=== PATIENT | male | born 1980 | race Two or more races ===

== ENCOUNTER 2024-09-14 11:56 | Inpatient (IN) | payer BC, OTHER ==
[~2024-09-14] VITALS: Ht 172.7 cm; Wt 91.0 kg
--- NOTE | 2024-09-14 12:22 | ED.PDOC ---
HPI Comments 44y M who presents to the ED for chief complaint of chest pain. Pt states he was at work today and states he felt short of breath. Pt states he had EKG done at work and states it showed Left bundle branch block. 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 Pt states in the ED, chest pain is center of his chest, constant, radiating to the L side of neck, rating the pain 2/10, pressure like in nature, with associa isabella exacerbation of pain while ambulating and no relieving factors. Pt has associated shortness of breath, and migraines but denies calf pain, diaphoresis, palpitations, and any other symptoms. Pt states he has seen PCP for similar symptoms a few months prior and was given cardiology referral but states appt is in a few weeks. Pt otherwise states he also had chest CT done 1 week prior and states he was told he has cadiomegaly. Pt in the ED, has noted BP of 161/79 with all other vitals in normal range. Pt otherwise denies any other symptoms at this time. Chief Complaint: Chest Pain Time Seen by MD: 12:19 Reviewed Notes: Nurses Notes, Medications, Allergies (Allergies to penicillin) Allergies: Coded Allergies: Penicillins (Verified Allergy, Unknown, 09/14/24) Information Source: Patient Mode of Arrival: Ambulatory Past Medical History PAST MEDICAL HISTORY: GERD, High Lipids, HTN Surgical History: Denies all surgeries Family History Family History: Family hx of heart dimitri Social History Smoker: Non-Smoker Alcohol: Occasionally Drugs: Denies Drug Use Lives In: Home Constitutional: denies: chills, diaphoresis, fatigue, fever, malaise, sweats, weakness, others EENTM: denies: blurred vision, double vision, ear bleeding, ear discharge, ear drainage, ear pain, ear ringing, eye pain, eye redness, hearing loss, mouth pain, mouth swelling, nasal discharge, nose bleeding, nose congestion, nose pain, photophobia, tearing, throat pain, throat swelling, voice changes, others Respiratory: reports: shortness of breath; denies: cough, hemoptysis, orthopnea, SOB at rest, SOB with excertion, stridor, wheezing, others Cardiovascular: reports: chest pain; denies: dizzy spells, diaphoresis, Dyspnea on exertion, edema, irregular heart beat, left arm pain, lightheadedness, palpitations, PND, syncope, others Gastrointestinal: denies: abdomen distended, abdominal pain, blood streaked bowels, constipated, diarrhea, dysphagia, difficulty swallowing, hematemesis, melena, nausea, poor appetite, poor fluid intake, rectal bleeding, rectal pain, vomiting, others Genitourinary: denies: burning, dysuria, flank pain, frequency, hematuria, incontinence, penile discharge, penile sore, pain, testicle pain, testicle swelling, urgency, others Neurological: reports: others (migraine); denies: dizziness, fainting, headache, left sided numbness, left sided weakness, numbness, paresthesia, pre-existing deficit, right sided numbness, right sided weakness, seizure, speech problems, tingling, tremors, weakness Musculoskeletal: denies: back pain, gout, joint pain, joint swelling, muscle pain, muscle stiffness, neck pain, others Integumetry: denies: bruises, change in color, change in hair/nails, dryness, laceration, lesions, lumps, rash, wounds, others Allergic/Immunocompromised: denies: Difficulty Healing, Frequent Infections, Hives, Itching, others Hematologic/Lymphatic: denies: anemia, blood clots, easy bleeding, easy bruising, swollen glands, others Endocrine: denies: excessive hunger, excessive sweating, excessive thirst, excessive urination, flushing, intolerance to cold, intolerance to heat, unexplained weight gain, unexplained weight loss, others Psychiatric: denies: anxiety, bipolar disorder, depression, hopeless, panic disorder, schizophrenia, sleepless, suicidal, others All Other Systems: Reviewed and Negative Physical Exam General Appearance: Moderate Distress HEENT: Normal ENT Inspection, Pharynx Normal, TMs Normal Neck: Full Range of Motion, Non-Tender, Normal, Normal Inspection Respiratory: Chest Non-Tender, Lungs Clear, No Accessory Muscle Use, No Respiratory Distress, Normal Breath Sounds Cardiovascular: No Edema, No JVD, No Murmur, No Gallop, Normal Peripheral Pulses, Regular Rate/Rhythm Breast Exam: Deferred Gastrointestinal: No Organomegaly, Non Tender, No Pulsatile Mass, Normal Bowel Sounds, Soft Genitalia: Deferred Pelvic: Deferred Rectal: Deferred Extremities: No calf tenderness, Normal capillary refill, Normal inspection, Normal range of motion, Non-tender, No pedal edema Musculoskeletal : Apperance: Normal Neurologic: Alert, supervisor steffen house II-XII nml as Tested, Motor Weakness, Normal Affect, Normal Mood, No Sensory Deficits Cerebellar Function: Normal Reflexes: Normal Skin: Dry, Normal Color, Warm Lymphatic: No Adenopathy EKG EKG : Pulse Rate (adult): 84 [place]: Normal Cardiac Rhythm: NSR Block: LBBB Hypertrophy: None ST: Normal Was a procedure done? Was a procedure done?: No CP Differential Dx Differential Diagnosis: A-fib, A-Flutter, Angina, Anxiety / Panic Attack, Electrolyte Disorder, Heart Failure, PVC's Differential Diagnosis: Chest Wall Pain, Costochondritis, Gastritis X-Ray, Labs, Meds, VS Vital Signs Date Time Temp Pulse Resp B/P (MAP) Pulse Ox O2 Delivery O2 Flow Rate FiO2 09/14/24 13:32 98.6 66 16 135/65 (88) 95 98.6 09/14/24 13:32 66 16 95 Room Air 09/14/24 12:58 77 09/14/24 12:22 84 09/14/24 12:01 84 09/14/24 11:57 99.1 96 20 161/79 (106) 100 Lab Test 09/14/24 14:21 09/14/24 13:52 09/14/24 12:07 Range/Units Troponin I High Sensitivity < 3 L < 3 L </=54 ng/L Urine Color Light-yellow Yellow Urine Clarity Clear Clear Urine pH 7.0 5.0-9.0 Urine Specific [place] 1.012 1.001-1.035 Urine Protein Negative Negative Urine Ketones Negative Negative Urine Blood Negative Negative /uL Urine Nitrite Negative Negative Urine Bilirubin Negative Negative Urine Urobilinogen Normal Negative mg/dL Urine Leukocyte Esterase Negative Negative /uL Urine RBC <1 0 - 3 /hpf Urine Microscopic WBC < 1 0-3 /HPF Urine Squamous Epithelial Cells None seen <5 /hpf Urine Bacteria None seen None Seen /hpf Urine Glucose Normal Normal mg/dL White Blood Count 6.4 4.4-10.8 10^3/uL Red Blood Count 5.87 4.5-5.90 10^6/uL Hemoglobin 17.2 13.5-17.5 g/dL Hematocrit 50.9 41.0-53.0 % Mean Corpuscular Volume 86.8 80.0-100.0 fL Mean Corpuscular Hemoglobin 29.3 28.0-32.0 pg Mean Corpuscular Hemoglobin Concent 33.8 32.0-36.0 g/dL Red Cell Distribution Width 12.6 11.8-14.3 % Platelet Count 264 140-450 10^3/uL Mean Platelet Volume 7.8 6.9-10.8 fL Neutrophils (%) (Auto) 66.0 37.0-80.0 % Lymphocytes (%) (Auto) 26.2 10.0-50.0 % Monocytes (%) (Auto) 6.2 0.0-12.0 % Eosinophils (%) (Auto) 1.0 0.0-7.0 % Basophils (%) (Auto) 0.6 0.0-2.0 % Neutrophils # (Auto) 4.2 1.6-8.6 10 ^3/uL Lymphocytes # (Auto) 1.7 0.4-5.4 10 ^3/uL Monocytes # (Auto) 0.4 0-1.3 10 ^3/uL Eosinophils # (Auto) 0.1 0-0.8 10 ^3/uL Basophils # (Auto) 0 0-0.2 10 ^3/uL Nucleated Red Blood Cells 0.2 % D-Dimer, Quantitative < 0.19 0.0-0.49 mg/L FEU Sodium Level 140 136-145 mmol/L Potassium Level 3.9 3.5-5.1 mmol/L Chloride Level 102 98-107 mmol/L Carbon Dioxide Level 28 20-31 mmol/L Anion Gap 10 5-15 Blood Urea Nitrogen 16 9-23 mg/dL Creatinine 0.93 0.700-1.30 mg/dL Glomerular Filtration Rate Calc 103 >90 mL/min BUN/Creatinine Ratio 17.2 10.0-20.0 Serum Glucose 110 H 74-106 mg/dL Calcium Level 10.5 H 8.7-10.4 mg/dL Magnesium Level 2.2 1.6-2.6 mg/dL Current Medications Medications (Trade) Dose Ordered Sig/Yany Route Start Time Stop Time Status Last Admin Aspirin 162 mg ONCE ONCE PO 09/14/24 12:15 09/14/24 12:16 DC 09/14/24 13:38 EXAM: XY CHEST TWO VIEWS ROUTINE IMPRESSION: No acute cardiopulmonary disease. TECHNIQUE: Multiple real-time sonographic images were obtained of the right upper quadrant. IMPRESSION: No sonographic evidence of gallstones or acute cholecystitis. Hepatic steatosis and hepatomegaly. At this time, the patient was being admitted to the hospitalist There is a concern of the ongoing chest pain so the patient was given aspirin 162 mg by mouth The patient's CBC is within normal limits The chemistry panel is within normal limits The D-dimer is negative The urine test is negative for infection The troponin x2 is negative At this time we are going to admit the patient to the hospitalist and we did contact the polytechnic registrar The patient understands and agrees with the management. Images Reviewed?: Images reviewed and evaluated by me Time of 1ST Reevaluation: 12:50 Reevaluation 1ST: Unchanged Patient Education/Counseling: Diagnosis, Treatment, Prognosis Family Education/Counseling: No Family Present Additional Information - I reviewed the following notes from patient's past medical encounters: - The following tests were ordered, and results were reviewed by me: (Labs, X- Ray, EKG): cbc, cmp,ekg x3, troponin x3, d dimer, chest x-ray, magnesium, ua - Additional information was gathered from interviewing the following independent Historian: (Family, Other Providers, EMT): none - I reviewed and agreed with the following test results read by other provider: (X-ray, CT, US): radiologist - I discussed treatments and results with medical personnel and: (consultants, family): none Departure 1 Departure Time of Disposition: 15:32 Impression: Primary Impression: Acute chest pain Additional Impression: Acute electrocardiogram changes Disposition: ADMITTED INPATIENT Admit to: Tele Condition: Fair Critical Care Note Critical Care Time?: No Stability Stability form required: Yes Unstable for transfer: Telemetry monitoring (Telemetry monitoring required), ED Physician Assesment (Clinical assesment) Heart Score Heart Score: Heart Score Response (Comments) Value History Slightly Suspicious 0 EKG Repolarization Disturb 1 Age 45-64 1 Risk Factors 1 or 2 risk factors 1 Troponin Normal limit 0 Total 3 I personally scribed for MARKY GUERRERO MD ([email or web address]) on 09/14/24 at 12:22. Electronically submitted by Fabrice Luther ([email or web address]). I personally scribed for MARKY GUERRERO MD ([email or web address]) on 09/14/24 at 13:29. Electronically submitted by Fabrice Luther ([email or web address]). MARKY GUERRERO MD Sep 14, 2024 12:22
[2024-09-14 12:25] LABS: Basophils # (auto) 0 10 ^3/uL (0-0.2); Basophils % (auto) 0.6 % (0.0-2.0); Eosinophils # (auto) 0.1 10 ^3/uL (0-0.8); Hematocrit 50.9 % (41.0-53.0); Hemoglobin 17.2 g/dL (13.5-17.5); Lymphocytes # (auto) 1.7 10 ^3/uL (0.4-5.4); Lymphocytes % (auto) 26.2 % (10.0-50.0); Mean Corpuscular Hemoglobin 29.3 pg (28.0-32.0); Mean Corpuscular Hgb Conc. 33.8 g/dL (32.0-36.0); Mean Corpuscular Volume 86.8 fL (80.0-100.0); Monocytes # (auto) 0.4 10 ^3/uL (0-1.3); Monocytes % (auto) 6.2 % (0.0-12.0); Neutrophils # (auto) 4.2 10 ^3/uL (1.6-8.6); Nucleated Red Blood Cells % 0.2 %; Platelet Count (auto) 264 10^3/uL (140-450); Red Blood Cells 5.87 10^6/uL (4.5-5.90); Red Cell Distribution Width 12.6 % (11.8-14.3); White Blood Cell 6.4 10^3/uL (4.4-10.8)
--- NOTE | 2024-09-14 12:31 | DVH ---
EXAM: XY CHEST TWO VIEWS ROUTINE CLINICAL HISTORY: CP COMPARISON: None TECHNIQUE: Frontal and lateral view of the chest was obtained FINDINGS: Lines and Tubes: None Lungs: No focal consolidation. Pleura: No effusion. No pneumothorax. Cardiomediastinal contours: Unremarkable Bones: No acute osseous abnormality. IMPRESSION: No acute cardiopulmonary disease.
[2024-09-14 12:35] LABS: Anion Gap 10 (5-15); Carbon Dioxide 28 mmol/L (20-31); Chloride 102 mmol/L (98-107); Potassium 3.9 mmol/L (3.5-5.1); Sodium 140 mmol/L (136-145)
[2024-09-14 12:41] LABS: BUN/Creatinine Ratio 17.2 (10.0-20.0); Blood Urea Nitrogen 16 mg/dL (9-23); Magnesium 2.2 mg/dL (1.6-2.6)
[2024-09-14 12:42] LABS: Calcium 10.5 mg/dL (8.7-10.4); Glucose 110 mg/dL (74-106)
--- NOTE | 2024-09-14 13:11 | DVH ---
INDICATION: pain TECHNIQUE: Multiple real-time sonographic images were obtained of the right upper quadrant. COMPARISON: None FINDINGS: The liver demonstrates increased echotexture without focal mass lesions. The liver measures 19 cm. There is no intrahepatic or extrahepatic ductal dilatation. The common duct measures 5 mm. The gallbladder is without evidence of stone or sludge. The gallbladder wall measures 1 mm and is w ithin normal limits. The right kidney measures 9.1 cm. The right kidney is normal in contour, size, and shape. The echo genicity is normal. There is no hydronephrosis. The pancreas is not well visualized due to overlying bowel gas. IMPRESSION: No sonographic evidence of gallstones or acute cholecystitis. Hepatic steatosis and hepatomegaly.
[2024-09-14] MEDS: ASPirin 81 mg TAB PO ONE (13:38)
[2024-09-14 13:53] LABS: Urine Bacteria None Seen /hpf (None Seen)
[2024-09-14 14:05] LABS: Urine Blood Negative /uL (Negative); Urine Clarity Clear (Clear); Urine Color Light-Yellow (Yellow); Urine Protein, UAD Negative (Negative); Urine Specific Gravity 1.012 (1.001-1.035); Urine Squamous Epithelial Cell None Seen /hpf (<5); Urine Urobilinogen Normal (Negative)
[2024-09-14 14:07] LABS: Urine WBC < 1 /HPF (0-3)
--- NOTE | 2024-09-14 19:07 | ECG ---
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
[2024-09-14] MEDS ORDERED: ONDANSETRON HCL 4 MG/2 ML VIAL IV PRN (20:30)
[2024-09-14] MEDS ORDERED: MELATONIN 5 MG TAB PO PRN (20:30)
[2024-09-14] MEDS ORDERED: HYDROcodone-ACET 5/325MG TAB PO PRN (20:30)
[2024-09-14] MEDS ORDERED: NITROGLYCERIN 0.4 MG SL TAB SL PRN (20:30)
[2024-09-14] MEDS ORDERED: MORPHINE SULFATE INJ 2 MG/ml SYRG IV PRN (20:30)
[2024-09-14] MEDS ORDERED: ACETAMINOPHEN 325 MG TAB PO PRN (20:30)
[2024-09-14] MEDS: FAMOTIDINE 20 MG TAB PO SCH (23:31)
[2024-09-15] VITALS (7 sets, daily range): BP systolic 111–134; BP diastolic 71–84; PULSE 67–90; RESP 16–18; TEMP 97.8–98.3; O2SAT 94–98
--- NOTE | 2024-09-15 01:14 | DVHHP2 ---
Admitting Diagnosis: CP rule out ACS, SOB History of Present Illness History Source: Patient Exam Limitations: No limitations HPI Mr. Naif Shen is a 44 yo male who presents with a chief complaint of chest pain. Patient reports he was at work today and states he felt short of breath while standing up. Patient states he had EKG done at work and states it showed Left bundle branch block. 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 Patient states his chest pain is midsternal constant, radiating to the L side of neck, rating the pain 2/10, pressure like in nature, with associated exacerbation of pain while ambulating and no relieving factors. Pt has associated shortness of breath at rest and with exertion. Patient admitted for further evaluation. Home Meds Reported Medications Erenumab-Aooe (Aimovig) 140 Mg/Ml Inj, 140 MG SC MONTHLY, INJ 25 Ubrogepant (Ubrelvy) 100 Mg Tab, 100 MG PO PRN for MIGRAINES, TAB 25 Acetaminophen (Tylenol Extra Strength) 500 Mg Tab, 500 MG PO, TAB 2/25 Atorvastatin Calcium (Lipitor) 40 Mg Tab, 1 TAB PO QPM, #90 TAB 1 Refill 25 Losartan Potassium (Losartan Potassium) 25 Mg Tab, 1 TAB PO BID, #90 TAB 1 Refill 25 Past Medical History Cardiac: HTN, Hyperlipidemia Pulmonary: No pertinent Hx Central Nervous System: No pertinent Hx GI: GERD Hemotology/Oncology: No pertinent Hx Hepatobiliary: No pertinent Hx Psychiatric: No pertinent Hx Musculoskeletal: No pertinent Hx Rheumotologic: No pertinent Hx Infectious Disease: No peritnent Hx ENT: No pertinent Hx Renal/: No pertinent Hx Endocrine: No pertinent Hx Dermatology: No pertinent Hx Smoker: No Hx (Negative) Alocohol: None Drugs: None Lives with: With family Domestic Violence: Neg Review of Systems Constitutional: No symptom reported Ears, Nose, & Throat: No symptom reported Eyes: No symptom reported Pulmonary/Respiratory: Dyspnea Cardiovascular: Chest Pain Gastrointestinal: No symptom reported Genitourinary: No symptom reported Musculoskeletal: No symptom reported Skin: No symptom reported Psychiatric: No symptom reported Endocrine: No symptom reported Hemotologic/Lymphatic: No symptom reported H&P Exam Vital Signs Vital Signs Date Time Temp Pulse Resp B/P (MAP) Pulse Ox O2 Delivery O2 Flow Rate FiO2 09/14/24 23:31 89 20 13/90 (65) 97 09/14/24 19:21 98.4 98.4 09/14/24 13:32 Room Air General Appeara: Well developed, Well nourished, Normal Appearance Head Exam: Normal inspection Neck Exam: Normal inspection, Non-tender, Normal alignment Eye Exam: bilateral eye Normal inspection, bilateral eye PERRL, bilateral eye EOMI Ear Exam: bilateral ear Auricle normal Nasal Exam: Normal inspection Mouth: Normal Inspection Pulmonary/Respiratory: Normal inspection, Normal breath sounds, Chest non- tender, Lungs clear Cardiovascular/Chest: Normal inspection, Regular rate, Normal Rhythm Peripheral Pulses: 2+ dorsalis pedis (R), 2+ dorsalis pedis (L), 2+ Radial (R), 2+ Radial (L) Abdominal Exam: Normal bowel sounds, Soft Rectal Exam: Deferred Tendon/ Neuro: Normal sensation, Normal motor function 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 Exam: Normal hearing, Normal speech Neuro/Mental St: Alert, Oriented Appearance: Appropriate appearance, Appropriate insight Eye contact/ Speech: Cooperative, Good eye contact, Normal speech Thoughts/Psych: Normal thought pattern Skin Exam: Normal inspection, Normal color, Warm/dry Labs/Xrays Labs Test 09/14/24 14:21 09/14/24 13:52 09/14/24 12:07 Range/Units Troponin I High Sensitivity < 3 L </=54 ng/L Urine Color Light-yellow Yellow Urine Clarity Clear Clear Urine pH 7.0 5.0-9.0 Urine Specific [place] 1.012 1.001-1.035 Urine Protein Negative Negative Urine Ketones Negative Negative Urine Blood Negative Negative /uL Urine Nitrite Negative Negative Urine Bilirubin Negative Negative Urine Urobilinogen Normal Negative mg/dL Urine Leukocyte Esterase Negative Negative /uL Urine RBC <1 0 - 3 /hpf Urine Microscopic WBC < 1 0-3 /HPF Urine Squamous Epithelial Cells None seen <5 /hpf Urine Bacteria None seen None Seen /hpf Urine Glucose Normal Normal mg/dL White Blood Count 6.4 4.4-10.8 10^3/uL Red Blood Count 5.87 4.5-5.90 10^6/uL Hemoglobin 17.2 13.5-17.5 g/dL Hematocrit 50.9 41.0-53.0 % Mean Corpuscular Volume 86.8 80.0-100.0 fL Mean Corpuscular Hemoglobin 29.3 28.0-32.0 pg Mean Corpuscular Hemoglobin Concent 33.8 32.0-36.0 g/dL Red Cell Distribution Width 12.6 11.8-14.3 % Platelet Count 264 140-450 10^3/uL Mean Platelet Volume 7.8 6.9-10.8 fL Neutrophils (%) (Auto) 66.0 37.0-80.0 % Lymphocytes (%) (Auto) 26.2 10.0-50.0 % Monocytes (%) (Auto) 6.2 0.0-12.0 % Eosinophils (%) (Auto) 1.0 0.0-7.0 % Basophils (%) (Auto) 0.6 0.0-2.0 % Neutrophils # (Auto) 4.2 1.6-8.6 10 ^3/uL Lymphocytes # (Auto) 1.7 0.4-5.4 10 ^3/uL Monocytes # (Auto) 0.4 0-1.3 10 ^3/uL Eosinophils # (Auto) 0.1 0-0.8 10 ^3/uL Basophils # (Auto) 0 0-0.2 10 ^3/uL Nucleated Red Blood Cells 0.2 % D-Dimer, Quantitative < 0.19 0.0-0.49 mg/L FEU Sodium Level 140 136-145 mmol/L Potassium Level 3.9 3.5-5.1 mmol/L Chloride Level 102 98-107 mmol/L Carbon Dioxide Level 28 20-31 mmol/L Anion Gap 10 5-15 Blood Urea Nitrogen 16 9-23 mg/dL Creatinine 0.93 0.700-1.30 mg/dL Glomerular Filtration Rate Calc 103 >90 mL/min BUN/Creatinine Ratio 17.2 10.0-20.0 Serum Glucose 110 H 74-106 mg/dL Calcium Level 10.5 H 8.7-10.4 mg/dL Magnesium Level 2.2 1.6-2.6 mg/dL Assessment/Plan Problem List: (1) Acute chest pain (2) Acute electrocardiogram changes Plan This is a 44 yo male with a known history of hypertension, GERD, hyperlipidemia who presents to the hospital with chest pain and shortness of breath. 1. Chest pain rule out ACS 2. Shortness of breath Plan Admit telemetry Cardiology consultation , 2D echocardiogram, serial troponin levels, ASA , Statin Lipid panel Analgesics as needed Supplemental oxygen as needed to keep 02 saturation above 92% Discussed all above with patient who verbalized agreement and understanding of care plan. Discussed assessment and care plan with supervising MD Plan discussed with: Patient, Other Code Visit Code Visit Total Time (mins): 45 Additional Comments Additional Comments Additional Comments 4-year-old male with a no significant past medical history presented to the hospital with chest pain shortness breath found to have 1. Chest pain rule out IA 2. Dyspnea on exertion -2D echo cardiology consultation SPENCER LAKHANI Sep 15, 2024 01:14 VIDHYA WALKER MD Sep 15, 2024 17:02
[2024-09-15] MEDS ORDERED: LOSA-533 PO (05:17)
[2024-09-15] MEDS ORDERED: ATOR-507 PO (05:18)
[2024-09-15] MEDS ORDERED: ACET-1304 PO (05:18)
[2024-09-15] MEDS ORDERED: UBRO100T2 PO (05:20)
[2024-09-15] MEDS ORDERED: EREN140I SC (05:21)
--- NOTE | 2024-09-15 10:07 | ECG ---
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
[2024-09-15 11:18] LABS: Triglycerides 73 mg/dL (< 150)
[2024-09-15 11:19] LABS: LDL Cholesterol 97 mg/dL (< 100)
[2024-09-15 11:20] LABS: Cholesterol 161 mg/dL (< 200); HDL Cholesterol 55 mg/dL (40-59)
[2024-09-15] MEDS: ASPirin 81 mg TAB PO SCH (11:27)
--- NOTE | 2024-09-15 17:30 | DVHSR ---
APPROVED REPORT EXAM: Two-dimensional and M-mode echocardiogram with Doppler and color Doppler. Blood Pressure: 124/77 mmHg INDICATION Chest Pain RISK FACTORS Height: 5'8, Weight: 200 DIMENSIONS LVDd4.5 (3.8-5.7cm)LA (2D)2.5 (1.9-4.0cm)Aortic Root3.3 (2.0-3.7cm) LVDs3.2 (2.5-4.0cm)LA (MM) (1.9-4.0cm)Aortic Cusp Exc1.7 (1.5-2.0cm) EF (%) 55.0 (55-70%)Rt. Atrium4.3 (1.9-4.0cm)Asc. Aorta cm IVSd1.1 (0.7-1.1cm)RV (D)4.3 (1.8-2.4cm) PWd1.0 (0.7-1.1cm) Mitral Valve MitralMitral Stenosis E wave0.63m/sMV Mean GR.mmHg A wave0.96m/sMV Peak GR.mmHg E/A ratio0.72D MVAcm2 DECEL [id number] 1/2 Timems Aortic Valve Aortic ValveAortic Stenosis V11.29m/Lisa Mean GR.4mmHg V21.31m/Lisa Peak GR.7mmHg LVOT Diameter2.0 (1.8-2.4cm)Doppler AVA3.09cm2 Pulmonic Valve V21.50m/s Tricuspid Valve TR Velocity2.73m/s [id number] Conclusion Sinus rhythm Right atrial and RV enlargement of mild degree. Normal Valves EF normal at 55% with normal RV function. Abnormal septal motion due to bundle branch block. Mild TR No masses or vegetations noted. No pericardial effusion.
--- NOTE | 2024-09-15 18:33 | DVHINCON2 ---
Date Seen: Sep 15, [address] Silva Reason for Consultation Chest Pain History of Present Illness Pt with history of SOB and BONNER while at work. Noted history of progressive SOB on exertion. . He has been feeling progressive symptoms over the last several months. He has been concerned given his history of heart disease in his family. Past Medical History Patient has a past medical history of migraines and hyperlipidemia as well as hypertension. Past Surgical History No past surgical history of significance. Family History: Arthritis G8 FATHER, Cardiovascular disease G8 MOTHER (STROKE) G8 FATHER, (HEART VALVE ISSUES STROKE ) Hypertension G8 MOTHER Allergies: Coded Allergies: Penicillins (Verified Allergy, Unknown, 09/14/24) Home Meds Reported Medications Erenumab-Aooe (Aimovig) 140 Mg/Ml Inj, 140 MG SC MONTHLY, INJ 09/15/24 Ubrogepant (Ubrelvy) 100 Mg Tab, 100 MG PO PRN for MIGRAINES, TAB 09/15/24 Acetaminophen (Tylenol Extra Strength) 500 Mg Tab, 500 MG PO, TAB 09/15/24 Atorvastatin Calcium (Lipitor) 40 Mg Tab, 1 TAB PO QPM, #90 TAB 1 Refill 09/15/24 Losartan Potassium (Losartan Potassium) 25 Mg Tab, 1 TAB PO BID, #90 TAB 1 Refill 09/15/24 Current Medications Current Medications Medications (Trade) Dose Ordered Sig/Yany Route PRN Reason Start Time Stop Time Status Last Admin Ondansetron HCl (Zofran) 4 mg Q6HPRN PRN IV NAUSEA / VOMITING 09/14/24 20:30 Famotidine (Pepcid Tablet) 20 mg BID PO 09/14/24 22:00 09/15/24 11:26 Acetaminophen/ Hydrocodone Bitart ([place] 5/325MG Tab) 1 tab Q6HPRN PRN PO MODERATE PAIN (4-6 PAIN SCALE) 09/14/24 20:30 Acetaminophen (Tylenol Tablet) 650 mg Q6HPRN PRN PO PAIN SCALE 1-3 OR TEMP>100.4 09/14/24 20:30 Melatonin (Melatonin) 5 mg ONCE@2200 PRN PO FOR INSOMNIA 09/14/24 20:30 Aspirin 81 mg DAILY PO 09/15/24 10:00 09/15/24 11:27 Nitroglycerin (Ntrostat Sublingual) 0.4 mg Q5MINP PRN SL FOR CHEST PAIN 09/14/24 20:30 Morphine Sulfate 2 mg Q30M PRN IV FOR CHEST PAIN 09/14/24 20:30 Review of Systems Review of systems from a constitutional standpoint negative. Cardiac and respiratory negative. GI negative. Review of Systems Constitutional: No symptom reported Ears, Nose, & Throat: No symptom reported Eyes: No symptom reported Pulmonary/Respiratory: Dyspnea Cardiovascular: Chest Pain Gastrointestinal: No symptom reported Genitourinary: No symptom reported Musculoskeletal: No symptom reported Skin: No symptom reported Psychiatric: No symptom reported Endocrine: No symptom reported Hemotologic/Lymphatic: No symptom reported Vital Signs Vital Signs Date Time Temp Pulse Resp B/P (MAP) Pulse Ox O2 Delivery O2 Flow Rate FiO2 09/15/24 17:03 98.3 90 16 134/84 (101) 97 98.3 09/15/24 04:34 Room Air* 0 21 Physical Exam General Appeara: Well developed, Well nourished, Normal Appearance Head Exam: Normal inspection Neck Exam: Normal inspection, Non-tender, Normal alignment . No carotid bruits. No significant jugular distention. Eye Exam: bilateral eye Normal inspection, bilateral eye PERRL, bilateral eye EOMI Ear Exam: bilateral ear Auricle normal Nasal Exam: Normal inspection Mouth: Normal Inspection Pulmonary/Respiratory: Normal inspection, Normal breath sounds, Chest non- tender, Lungs clear Cardiovascular/Chest: Normal inspection, Regular rate, Normal Rhythm. Soft S2. no significant gallops audible. 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 TRANSFER Exam: Normal hearing, Normal speech Neuro/Mental St: Alert, Oriented Appearance: Appropriate appearance, Appropriate insight Eye contact/ Speech: Cooperative, Good eye contact, Normal speech Thoughts/Psych: Normal thought pattern Skin Exam: Normal inspection, Normal color, Warm/dry Labs/Diagnostic Data Labs Test 09/15/24 14:38 09/15/24 09:57 09/14/24 13:52 09/14/24 12:07 Range/Units Troponin I High Sensitivity < 3 L </=54 ng/L Triglycerides Level 73 < 150 mg/dL Cholesterol Level 161 < 200 mg/dL LDL Cholesterol 97 < 100 mg/dL HDL Cholesterol 55 40-59 mg/dL Urine Color Light-yellow Yellow Urine Clarity Clear Clear Urine pH 7.0 5.0-9.0 Urine Specific [place] 1.012 1.001-1.035 Urine Protein Negative Negative Urine Ketones Negative Negative Urine Blood Negative Negative /uL Urine Nitrite Negative Negative Urine Bilirubin Negative Negative Urine Urobilinogen Normal Negative mg/dL Urine Leukocyte Esterase Negative Negative /uL Urine RBC <1 0 - 3 /hpf Urine Microscopic WBC < 1 0-3 /HPF Urine Squamous Epithelial Cells None seen <5 /hpf Urine Bacteria None seen None Seen /hpf Urine Glucose Normal Normal mg/dL White Blood Count 6.4 4.4-10.8 10^3/uL Red Blood Count 5.87 4.5-5.90 10^6/uL Hemoglobin 17.2 13.5-17.5 g/dL Hematocrit 50.9 41.0-53.0 % Mean Corpuscular Volume 86.8 80.0-100.0 fL Mean Corpuscular Hemoglobin 29.3 28.0-32.0 pg Mean Corpuscular Hemoglobin Concent 33.8 32.0-36.0 g/dL Red Cell Distribution Width 12.6 11.8-14.3 % Platelet Count 264 140-450 10^3/uL Mean Platelet Volume 7.8 6.9-10.8 fL Neutrophils (%) (Auto) 66.0 37.0-80.0 % Lymphocytes (%) (Auto) 26.2 10.0-50.0 % Monocytes (%) (Auto) 6.2 0.0-12.0 % Eosinophils (%) (Auto) 1.0 0.0-7.0 % Basophils (%) (Auto) 0.6 0.0-2.0 % Neutrophils # (Auto) 4.2 1.6-8.6 10 ^3/uL Lymphocytes # (Auto) 1.7 0.4-5.4 10 ^3/uL Monocytes # (Auto) 0.4 0-1.3 10 ^3/uL Eosinophils # (Auto) 0.1 0-0.8 10 ^3/uL Basophils # (Auto) 0 0-0.2 10 ^3/uL Nucleated Red Blood Cells 0.2 % D-Dimer, Quantitative < 0.19 0.0-0.49 mg/L FEU Sodium Level 140 136-145 mmol/L Potassium Level 3.9 3.5-5.1 mmol/L Chloride Level 102 98-107 mmol/L Carbon Dioxide Level 28 20-31 mmol/L Anion Gap 10 5-15 Blood Urea Nitrogen 16 9-23 mg/dL Creatinine 0.93 0.700-1.30 mg/dL Glomerular Filtration Rate Calc 103 >90 mL/min BUN/Creatinine Ratio 17.2 10.0-20.0 Serum Glucose 110 H 74-106 mg/dL Calcium Level 10.5 H 8.7-10.4 mg/dL Magnesium Level 2.2 1.6-2.6 mg/dL EKG shows sinus rhythm. Left bundle branch block. Echocardiogram reveals normal left ventricular function. Mild RV and RA enlargement. No valvular pathology. Assessment Chest pain with shortness of breath. New left bundle-branch block. Progressive symptoms of dyspnea. Migraine headaches. Hypertension. Hyperlipidemia. Plan/Recommendation After discussing the above situation with the patient. He agrees to have cardiac catheterization and therapeutic intervention if necessary. This will expedite his care and prevent further unnecessary testing now and in the future. He agrees. Risks and benefits explained. Plan discussed with: Patient NYHA Physical activity limitations: Class2(Slight)fatigue,sob Date of Service: Sep 15, 2024 Billing Provider: URSULA ZIEGLER Sr., MD Cardiology Common Codes: 77710-LXIFWHL INP/OBS CARE (High) URSULA ZIEGLER Sr., MD Sep 15, 2024 18:33
[2024-09-15 20:18] LABS: Basophils # (auto) 0 10 ^3/uL (0-0.2); Basophils % (auto) 0.2 % (0.0-2.0); Eosinophils # (auto) 0 10 ^3/uL (0-0.8); Eosinophils % (auto) 0.7 % (0.0-7.0); Hematocrit 44.7 % (41.0-53.0); Hemoglobin 15.9 g/dL (13.5-17.5); Lymphocytes # (auto) 0.6 10 ^3/uL (0.4-5.4); Lymphocytes % (auto) 10.1 % (10.0-50.0); Mean Corpuscular Hemoglobin 30.3 pg (28.0-32.0); Mean Corpuscular Hgb Conc. 35.5 g/dL (32.0-36.0); Mean Corpuscular Volume 85.3 fL (80.0-100.0); Monocytes # (auto) 0.4 10 ^3/uL (0-1.3); Neutrophils # (auto) 4.9 10 ^3/uL (1.6-8.6); Nucleated Red Blood Cells % 0.2 %; Platelet Count (auto) 212 10^3/uL (140-450); Red Blood Cells 5.24 10^6/uL (4.5-5.90); Red Cell Distribution Width 13.2 % (11.8-14.3)
--- NOTE | 2024-09-15 20:32 | DVH ---
CHEST RADIOGRAPH Indication: pre op/pain Technique: Single frontal view of the chest was obtained Comparison: None FINDINGS: Lines and Tubes: None Lungs: No focal consolidation. Pleura: No effusion. No pneumothorax. Cardiomediastinal contours: Unremarkable Bones: No acute osseous abnormality. IMPRESSION: No acute cardiopulmonary disease.
[2024-09-15 20:35] LABS: Alanine Aminotransferase 25 U/L (7-40); Alkaline Phosphatase 73 U/L (46-116); Anion Gap 9 (5-15); BUN/Creatinine Ratio 16.5 (10.0-20.0); Blood Urea Nitrogen 16 mg/dL (9-23); Calcium 10.3 mg/dL (8.7-10.4); Carbon Dioxide 27 mmol/L (20-31); Chloride 104 mmol/L (98-107); INR 1.03 (0.9-1.15); Partial Thromboplastin Time 27.1 SEC (24.5-34.5); Potassium 3.9 mmol/L (3.5-5.1); Prothrombin Time 10.9 sec (9.3-11.8); Sodium 140 mmol/L (136-145); Total Protein 6.9 g/dL (5.7-8.2)
[2024-09-15 20:37] LABS: Albumin 4.8 g/dL (3.2-4.8); Aspartate Aminotransferase 12 U/L (13-40); Glucose 132 mg/dL (74-106)
[2024-09-16] VITALS (12 sets, daily range): BP systolic 105–127; BP diastolic 59–80; PULSE 70–96; RESP 16–18; TEMP 98.1–99; O2SAT 92–97
[2024-09-16] MEDS: IODIXANOL 320MG/ML 100ML BTL IV ONE ×2 (07:18→12:41)
[2024-09-16] MEDS: HEPARIN IN NS 1000Units/500mL 1,500 ML ONE ×2 (07:18→12:41)
[2024-09-16] MEDS: LIDOCAINE 2%HCL (LOCAL ANESTH.) INJ 20ML MDV ONE (12:50)
[2024-09-16] MEDS: VERAPAMIL 2.5MG/ML INJ 2ML VIAL IV ONE (12:50)
[2024-09-16] MEDS: MIDAZOLAM HCL 2MG/2ML 2ml VIAL (1mg/ml) ONE (12:50)
[2024-09-16] MEDS: fentaNYL CITRATE 100 MCG/2 ML VL ONE (12:50)
[2024-09-16] MEDS: HEPARIN SODIUM (PORCINE) 5000 UNITS/ML 1ML VIAL ONE (12:50)
[2024-09-16] MEDS: ANGIOMAX 250 MG VIAL IV ONE (12:50)
[2024-09-16] MEDS: SODIUM CHL 0.9% 0 ML ONE (12:51)
--- NOTE | 2024-09-16 13:18 | DVHOP2 ---
Operative Report - 2 Report Details Date: 09/16/24 Preop Diagnosis: CAD Postop Diagnosis: NORMAL CORONARIES Surgeon: Ursula Watters MD Anesthesiologist: CONSCIOUS SEDATION. Anesthesia: Mac (PERSONALLY OVERSAW THE ADMINISTRATION OF VERSED AND FENTANYL THROUGHOUT THE PROCEDURE. I MONITORED THE PATIENT THROUGHOUT THE ENTIRETY OF THE PROCEDURE. ONE OF VERSED AND 50 MCG OF FENTANYL ADMINISTERED), Local Consent: The patient was informed of the risks and benefits of the procedure. These include but are not limited to complications of anesthesia, postoperative infection, incomplete relief of symptoms, recurrence of symptoms, damage to blood vessels, nerves and tendons, deep venous thrombosis, pulmonary embolism and possible need for repeat surgery in the future. Complications: NO COMPLICATIONS Estimated Blood Loss: 2 CC Findings: NORMAL CORONARIES. NORMAL LV FUNCTION. NO CAD. NORMAL EJECTION FRACTION. NORMAL END-DIASTOLIC PRESSURES. Indications for Surgery: CHEST PAIN SHORTNESS OF BREATH. ABNORMAL EKG Name of Procedure Performed LEFT HEART CATHETERIZATION. BILATERAL CINE CORONARY ANGIOGRAPHY. LEFT VENTRICULOGRAPHY. Procedure Details Procedure Details: Prior local anesthesia with 2% lidocaine to the right wrist and full informed consent obtained patient was prepped and draped in the usual fashion followed by placement of a six Turkmen sheath into the radial artery. We then passed a Reid catheter into the right radial artery and into the left ventricle. This was also used for cannulation of both right and left coronary ostia without complications. Hemodynamics aortic blood pressure was 130/70 end-diastolic pressure was five. There was no gradient across the aortic valve on pullback Coronary anatomy: The RCA is a large vessel it is normal in its proximal distal segments. The PDA and posterolateral branches are normal. Left main is large and normal. Left anterior descending is a large vessel with two diagonals which are normal and free of significant disease. The septals are normal and free of significant disease. The circumflex is large and codominant. Two obtuse marginals that are normal and free of significant disease. Ventriculography in the NIELSEN projection shows an EF of 65%. Impression: Normal left ventricular end-diastolic pressure at rest. Normal ejection fraction. No CAD. Recommendations: Continue risk factor modification. Condition Good Disposition Home Date of Service: Sep 16, 2024 Billing Provider: URSULA WATTERS Sr., MD Cardiology Common Codes: 15129-JXPVMLE INP/OBS CARE (High) Cardiology Procedure Codes: 23232-QOWLNT VESSEL W/I VASC FAM, 07406-DZJS HEART CATH W/INTRA INJ URSULA WATTERS Sr., MD Sep 16, 2024 13:18
--- NOTE | 2024-09-16 13:50 | ECG ---
[facility] Test Date: 2024-09-15 Test Time: 17:48:23 Pat Name: MIKE CONTRERAS Department: Room: 0212T A Gender: M Back Panel Padder: BESSY : 1980 Requested By: URSULA WATTERS Order Number: [id number] Reading MD: Ursula Watters Measurements Intervals Oral Rate: 89 P: 76 MI: 179 QRS: 10 QRSD: 129 T: 86 QT: 393 QTc: 479 Interpretive Statements Sinus rhythm Left bundle branch block Electronically Signed On 09-20-2024 21:24:22 PST by Ursula Watters Please click the below link to view image of tracing.
--- NOTE | 2024-09-16 15:37 | DVHDS2 ---
Discharge Summary Date of Admission Sep 14, 2024 at 20:30 Date of Discharge: Sep 16, 2024 Labs/Diagnostic Data: Laboratory Results Test 09/15/24 19:53 09/15/24 14:38 09/15/24 09:57 09/14/24 13:52 White Blood Count 6.0 10^3/uL (4.4-10.8) Red Blood Count 5.24 10^6/uL (4.5-5.90) Hemoglobin 15.9 g/dL (13.5-17.5) Hematocrit 44.7 % (41.0-53.0) Mean Corpuscular Volume 85.3 fL (80.0-100.0) Mean Corpuscular Hemoglobin 30.3 pg (28.0-32.0) Mean Corpuscular Hemoglobin Concent 35.5 g/dL (32.0-36.0) Red Cell Distribution Width 13.2 % (11.8-14.3) Platelet Count 212 10^3/uL (140-450) Mean Platelet Volume 7.8 fL (6.9-10.8) Neutrophils (%) (Auto) 82.0 % (37.0-80.0) Lymphocytes (%) (Auto) 10.1 % (10.0-50.0) Monocytes (%) (Auto) 7.0 % (0.0-12.0) Eosinophils (%) (Auto) 0.7 % (0.0-7.0) Basophils (%) (Auto) 0.2 % (0.0-2.0) Neutrophils # (Auto) 4.9 10 ^3/uL (1.6-8.6) Lymphocytes # (Auto) 0.6 10 ^3/uL (0.4-5.4) Monocytes # (Auto) 0.4 10 ^3/uL (0-1.3) Eosinophils # (Auto) 0 10 ^3/uL (0-0.8) Basophils # (Auto) 0 10 ^3/uL (0-0.2) Nucleated Red Blood Cells 0.2 % Prothrombin Time 10.9 sec (9.3-11.8) Prothrombin Time INR 1.03 (0.9-1.15) Activated Partial Thromboplast Time 27.1 SEC (24.5-34.5) Sodium Level 140 mmol/L (136-145) Potassium Level 3.9 mmol/L (3.5-5.1) Chloride Level 104 mmol/L (98-107) Carbon Dioxide Level 27 mmol/L (20-31) Anion Gap 9 (5-15) Blood Urea Nitrogen 16 mg/dL (9-23) Creatinine 0.97 mg/dL (0.700-1.30) Glomerular Filtration Rate Calc 98 mL/min (>90) BUN/Creatinine Ratio 16.5 (10.0-20.0) Serum Glucose 132 mg/dL (74-106) Calcium Level 10.3 mg/dL (8.7-10.4) Total Bilirubin 1.0 mg/dL (0.2-1.0) Aspartate Amino Transferase (AST) 12 U/L (13-40) Alanine Aminotransferase (ALT) 25 U/L (7-40) Alkaline Phosphatase 73 U/L (46-116) Total Protein 6.9 g/dL (5.7-8.2) Albumin 4.8 g/dL (3.2-4.8) Troponin I High Sensitivity < 3 ng/L (</=54) Triglycerides Level 73 mg/dL (< 150) Cholesterol Level 161 mg/dL (< 200) LDL Cholesterol 97 mg/dL (< 100) HDL Cholesterol 55 mg/dL (40-59) Urine Color Light-yellow (Yellow) Urine Clarity Clear (Clear) Urine pH 7.0 (5.0-9.0) Urine Specific [place] 1.012 (1.001-1.035) Urine Protein Negative (Negative) Urine Ketones Negative (Negative) Urine Blood Negative /uL (Negative) Urine Nitrite Negative (Negative) Urine Bilirubin Negative (Negative) Urine Urobilinogen Normal mg/dL (Negative) Urine Leukocyte Esterase Negative /uL (Negative) Urine RBC <1 /hpf (0 - 3) Urine Microscopic WBC < 1 /HPF (0-3) Urine Squamous Epithelial Cells None seen /hpf (<5) Urine Bacteria None seen /hpf (None Seen) Urine Glucose Normal mg/dL (Normal) Test 09/14/24 12:07 D-Dimer, Quantitative < 0.19 mg/L FEU (0.0-0.49) Magnesium Level 2.2 mg/dL (1.6-2.6) Other Laboratory Tests 09/15/24 19:53 Brief Hx & Hospital Course: 44-year-old male with a no significant past medical history presented to the hospital with chest pain shortness breath, was seen by Dr. Abbott he was sent to [facility] for cardiac catheterization. Patient underwent left heart catheterization which shows no evidence of coronary artery disease. Patient is being discharged under stable condition. Condition at Discharge: Stable Final Diagnosis/Problems List 44-year-old male with a no significant past medical history presented to the hospital with chest pain shortness breath found to have 1. Chest pain rule out DC 2. Dyspnea on exertion -2D echo cardiology consultation Discharge Disposition: Home SNF Discharge Will this Physician continue t: No Discharge Instruct/Medications Diet: Cardiac 2g Na,low cholest Activity: No Restrictions, As Tolerated Follow Up/Referral: With the PCP in 1 week Medications: Resume home medications Discharge Statement: "Patient was advised to return to the ER or call 911 if any headaches, dizziness, shortness of breath, chest pain, abdominal pain, bleeding, fevers, or worsening of medical condition. Patient was counseled about treatment plan, medications, possible side effects, patientverbalized understanding. All questions were answered to the best of my ability. This discharge took greater then 30 minutes in planning, reviewing documentation, counseling the patient, and discussing with other team members." ASSESSMENT ASSESSMENT Assessment 44-year-old male with a no significant past medical history presented to the hospital with chest pain shortness breath found to have 1. Chest pain rule out DC 2. Dyspnea on exertion -2D echo cardiology consultation Date of Service: Sep 16, 2024 Billing Provider: VIDHYA WALKER MD Common Visit Codes: NOT BILLABLE VIDHYA WALKER MD Sep 16, 2024 15:37
== END 2024-09-16 20:06 | disposition home or self-care (01) | DRG 282 ==
LOC: ER 11:56 → OVERFLOW 20:30 → TELE-CENTR 09-15 04:00
PROVIDERS: ADMIT Internal Medicine; ATTEND Internal Medicine
PROC: B211YZZ Fluoroscopy of Multiple Coronary Arteries using Other Contrast (ICD-10-PCS; principal; 2024-09-16)
PROC: B215YZZ Fluoroscopy of Left Heart using Other Contrast (ICD-10-PCS; 2024-09-16)
DX: I21.9 Acute myocardial infarction, unspecified (principal); I44.7 Left bundle-branch block, unspecified; G43.909 Migraine, unspecified, not intractable, without status migrainosus; E78.5 Hyperlipidemia, unspecified; K21.9 Gastro-esophageal reflux disease without esophagitis; I10 Essential (primary) hypertension; K76.0 Fatty (change of) liver, not elsewhere classified; Z82.3 Family history of stroke; Z82.49 Family history of ischemic heart disease and other diseases of the circulatory system; Z87.891 Personal history of nicotine dependence; Z79.899 Other long term (current) drug therapy; Z88.0 Allergy status to penicillin
CPT/HCPCS: 36415; 71045; 71046; 76705; 80048; 80053; 80061; 81001; 83735; 84484; 85025; 85379; 85610; 85730; 86850; 86900; 86901; 93005; 93306; 93454; 99152; G0378; J2250; Q9967